=== PATIENT | male | born 1945 | race Caucasian/White ===

== ENCOUNTER → 2023-09-11 | Outpatient (CLI) | payer MEDICARE ==
--- NOTE | 2023-09-11 14:04 | XR ---
EXAMINATION TYPE: XR Hip RT and AP Pelvis DATE OF EXAM: 09/11/2023 COMPARISON: None HISTORY: Low back pain TECHNIQUE: 2 view right hip supplemented with AP pelvis FINDINGS: Right femoral head articulates with the acetabulum. Joint space is preserved. No acute frac ture or dislocation is evident. Sacroiliac joints and symphysis pubis are normal. Degenerative disc changes are in the lower lumbar s pine. IMPRESSION: 1. No acute osseous abnormality right hip
--- NOTE | 2023-09-11 21:42 | XR ---
EXAMINATION TYPE: XR lumbosacral spine min 4V DATE OF EXAM: 09/11/2023 COMPARISON: None HISTORY: Low back pain TECHNIQUE: 5 view lumbar spine FINDINGS: There are 5 lumbar-type vertebral bodies. The pedicles are intact. Facet degenerative renee es present L5-S1. No spondylolytic defects are evident. Vertebral body heights are preserved. Spondyl osis is present there is degenerative disc change with vacuum phenomenon L5-S1 and L4-5. IMPRESSION: 1. Degenerative disc change L4-5 and L5-S1. 2. Facet degenerative changes predominantly L5-S1
== END | disposition home or self-care (01) ==
LOC: RADXRMAIN 12:15
PROVIDERS: ATTEND Internal Medicine
DX: M51.37 Other intervertebral disc degeneration, lumbosacral region (principal); M47.817 Spondylosis without myelopathy or radiculopathy, lumbosacral region; M25.551 Pain in right hip
CPT/HCPCS: 72110; 73502

== ENCOUNTER 2024-03-03 06:02 | Day surgery (SDC) | payer MEDICARE ==
[2024-02-28 14:25] VITALS: BMI 32.4
[2024-03-03] MEDS: SODIUM CHLORIDE 0.9% 500 ML 500 ML IV ONE (06:46)
[2024-03-03 06:57] LABS: Glucose,Whole Blood 133 mg/dL (70-110)
[2024-03-03 07:00] VITALS: TEMP 97.5
[2024-03-03] MEDS: MIDAZOLAM 2 MG/2 ML VIAL IVP ONE (07:15)
[2024-03-03] MEDS: fentaNYL (PF) 50 MCG/1 ML VIAL IVP ONE (07:15)
[2024-03-03] MEDS: BENZOCAINE SPRAY 1 CAN MUCOUS MEM ONE (07:15)
--- NOTE | 2024-03-03 07:38 | P.PCN ---
Date of Procedure: 03/03/24 Description of Procedure: Indication: Aortic regurgitation Procedure Description: After explaining the procedure to the patient, it's risk and complications, blood pressure, heart rate and O2 saturation were monitored. The throat was sprayed with Cetacaine. Patient received 2 mg intravenous Versed, 50 mcg intravenous fentanyl. The probe was introduced into the esophagus without difficulty. Images were obtained. Following that, the probe was removed. There was no immediate complication. Findings: Left atrial size is mildly dilated, left atrial appendage is normal. Left ventricle size is normal. The ejection fraction is estimated at 50 to 55%. The mitral valve revealed mild thickening. The aortic valve is tricuspid valve and appears to be normal. The tricuspid valve is normal. No pericardial fusion was noted. Contrast bubble study revealed no shunting across the interatrial septum. The descending thoracic aorta was not well-visualized because of mechanical problem with the probe. Doppler: Pulse wave and color Doppler were obtained, and revealed moderate to severe central aortic regurgitation with mild to moderate mitral regurgitation and mild tricuspid regurgitation. There was no shunting by color Doppler study. Conclusion: 1. Mildly dilated left atrium with normal appearance of the left atrial appendage 2. Normal ventricle size with borderline normal systolic function 3. Moderate to severe central aortic regurgitation 4. Mild to moderate mitral regurgitation 5. No shunting across the interatrial septum Duration of sedation 15 minutes
[2024-03-03] MEDS ORDERED: SODIUM CHLORIDE 0.9% 1,000 ML IV SCH (07:45)
[2024-03-03 08:08] VITALS: RESP 16
[2024-03-03 08:48] VITALS: BP 154/83; PULSE 92
[2024-03-03] MEDS ORDERED: ATORVASTATIN 20 MG TAB PO SCH (09:00)
[2024-03-03] MEDS ORDERED: metFORMIN 500 MG TAB PO SCH (09:00)
[2024-03-03] MEDS ORDERED: NON FORMULARY DRUG (Aspirin Ec 81 MG Tablet) PO SCH (09:00)
[2024-03-03] MEDS ORDERED: FUROSEMIDE 20 MG TAB PO SCH (09:00)
== END 2024-03-03 08:49 | disposition home or self-care (01) ==
LOC: CATHCVL 06:02
PROVIDERS: ATTEND Internal Medicine Interventional Cardiology
DX: I08.3 Combined rheumatic disorders of mitral, aortic and tricuspid valves (principal); I10 Essential (primary) hypertension; E11.9 Type 2 diabetes mellitus without complications; E78.2 Mixed hyperlipidemia; F17.210 Nicotine dependence, cigarettes, uncomplicated; Z79.890 Hormone replacement therapy; Z79.82 Long term (current) use of aspirin; Z79.84 Long term (current) use of oral hypoglycemic drugs; Z79.899 Other long term (current) drug therapy
CPT/HCPCS: 93312; 93320; 93325

== ENCOUNTER → 2024-03-10 | Outpatient (CLI) | payer MEDICARE ==
[2024-03-10 16:51] LABS: BUN/Creat Ratio 10.53 Ratio (12.00-20.00); Blood Urea Nitrogen 15.8 mg/dL (9.0-27.0); Calcium 9.8 mg/dL (8.7-10.3); Carbon Dioxide 24.2 mmol/L (21.6-31.8); Chloride 108 mmol/L (96-109); Glucose 89 mg/dL (70-110); Potassium 4.5 mmol/L (3.5-5.5); Sodium 144 mmol/L (135-145)
[2024-03-10 19:45] LABS: NT-Pro-B-Type Natriuretic Pept 89 pg/mL (0-450)
== END | disposition home or self-care (01) ==
LOC: LABWHC1 08:55
PROVIDERS: ATTEND Internal Medicine Interventional Cardiology
DX: I35.1 Nonrheumatic aortic (valve) insufficiency (principal); R06.02 Shortness of breath
CPT/HCPCS: 36415; 80048; 83880